=== PATIENT | female | born 1970 | race Caucasian/White ===

== ENCOUNTER 2017-02-27 13:36 | Outpatient (CLI) | payer MEDICARE, OTHER ==
[2016-04-17 20:30] VITALS: BP 109/67
--- NOTE | 2017-02-28 09:43 | OP Clinic Progress Note ---
REFERRING PHYSICIAN: Dr. Natalie Lees REASON FOR VISIT: This pleasant 46-year-old lady has had right-sided hearing loss for at least 2 years. She got a hearing aid for the right side. She has had more problems with disequilibrium and imbalance. She has a sensation that the right ear needs to pop. She denies headaches, although about 2 years ago, she had severe pain in the right suboccipital area and it has gotten somewhat better lately. She also has some rhinitis. She has taken Kristie and Flonase. The hearing aid that she uses gets an echo sound in it. About the last 6 months, she has had significant disequilibrium. She does not really have clear vertigo when she is sitting. Turning over in bed does not cause disequilibrium either but turning quickly, she loses her balance. 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 Both eardrums are slightly retracted. I can see the right eardrum better, as there is not quite as much of an anterior canal overhang. I do not see obvious fluid, but the eardrum is clearly significantly retracted mostly centerly with a retracted umbo of the malleus. The hard palate is somewhat high in arch and there is some dental malalignment secondary to an anterior open bite. Nasal septum is fairly midline, although somewhat serpentine. The Aguayo refers to the left ear which would be consistent with a sensorineural hearing loss on the left side. 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 However, the patient also clinically has a right-sided sensorineural hearing loss. It is well possible that she could have an acoustic-type of neuroma with progression to involve the vestibular nerve from the right side. I believe she ought to get an MRI to rule out the central etiology. Also needs to get a repeat audiogram and compare it with an audiogram of about 2 years ago when she got her hearing aid. After further delineation of those 2 issues (current hearing and an MRI), I will make additional plans. cc: Dr. Natalie ROCHA
== END 2017-02-27 13:37 ==
LOC: ENT 13:36
PROVIDERS: ATTEND Otolaryngology
DX: H90.5 Unspecified sensorineural hearing loss (principal)
CPT/HCPCS: G0463

== ENCOUNTER 2017-05-15 15:27 | Outpatient (CLI) | payer MEDICARE, OTHER ==
[2016-04-17 20:30] VITALS: BP 109/67
[2017-05-15 16:20] LABS: eGFR (African) > 60; eGFR (Non-African) > 60
== END 2017-05-15 15:30 ==
LOC: LAB 15:27
PROVIDERS: ATTEND Physician Assistant
DX: R82.99 Other abnormal findings in urine (principal)
CPT/HCPCS: 36415; 80053; 87086